=== PATIENT | female | born 1950 | race Caucasian/White ===

== ENCOUNTER 2017-05-12 05:28 | Observation (INO) ==
[2017-04-23 10:51] LABS: Basophils # 0.1 10*3/uL (0.0-0.2); Basophils % 0.9 % (0.0-0.8); Eosinophils # 0.2 10*3/uL (0.0-0.87); Eosinophils % 2.7 % (0.00-10.9); Hematocrit 40.2 VOL% (35.7-47.0); Hemoglobin 13.3 GM/DL (12.0-16.0); Immature Granulocytes % 0.4 %; Immature Granulocytes Absolute 0.03 #; Lymphocytes # 2.9 10*3/uL (1.4-4.0); Lymphocytes % 37.2 % (21.3-54.2); Mean Corpuscular HGB Conc 33.1 GM/DL (32-36); Mean Corpuscular Hemoglobin 30 PG (27-34); Mean Corpuscular Volume 90.7 FL (87-102); Mean Platelet Volume 11.5 FL (9.6-12.0); Monocytes # 0.4 10*3/uL (0.11-0.8); Monocytes % 5.5 % (1.7-12.7); Neutrophils # 4.1 10*3/uL (1.4-7.4); Neutrophils % 53.3 % (38.7-73.9); Platelet Count 255 T/CUMM (130-400); Red Blood Count 4.43 MC/CUMM (3.8-5.5); Red Cell Distribution Width 12.6 % (9.3-17.3); White Blood Count 7.7 T/CUMM (4-12)
[2017-04-23 10:59] LABS: Apearance,Urine Slightly Hazy (Clear); Bacteria,Urine Occasional /HPF (Few); Bilirubin,Urine Negative (Negative); Blood, Urine Negative (Negative); Glucose,Urine (UA) Negative (Negative); Ketones,Urine Negative (Negative); Mucus,Urine Occasional /LPF (Occasional); Nitrite,Urine Negative (Negative); Protein,Urine Negative; RBC,Urine <1 /HPF (0-4); Squamous Epithelial Cell,Urine Occasional /HPF (0-10); Urine Color Yellow (Yellow); Urine Specific Gravity 1.013 (1.001-1.035); Urine Urobilinogen < 2.0 EU/DL (0.2-1.0)
[2017-04-23 11:00] LABS: INR 0.9; Partial Thromboplastin Time 26.4 SECS (0-40)
[2017-04-23 11:24] LABS: Albumin 3.6 G/DL (3.4-5.0); Bilirubin,Total 0.5 MG/DL (0.2-1.0); Osmolality,Calculated 284.1 MOS/KG (273-304); Total Protein 7.1 G/DL (6.4-8.3)
[2017-05-12] MEDS ORDERED: ceFAZolin 1,000 MG VIAL ONE (05:53)
[2017-05-12] MEDS ORDERED: VANCOMYCIN 1,000 MG VIAL ONE (05:53)
[2017-05-12] MEDS ORDERED: ceFAZolin 1,000 MG in SYRINGE 1 EACH IV ONE (06:00)
[2017-05-12] MEDS ORDERED: VANCOMYCIN INJ 1,000 MG in SODIUM CHLORIDE 0.9% 250 ML IV ONE (06:00)
[2017-05-12] MEDS ORDERED: LACTATED RINGERS 1,000 ML IV SCH (07:30)
[2017-05-12] MEDS ORDERED: DIAZEPAM 5 MG TABLET PO STA (07:38)
[2017-05-12] MEDS ORDERED: PANTOPRAZOLE 40 MG TABLET PO STA (07:38)
[2017-05-12] MEDS ORDERED: PANTOPRAZOLE 40 MG TABLET PO ONE (07:40)
[2017-05-12] MEDS ORDERED: DIAZEPAM 5 MG TABLET ONE (07:40)
[2017-05-12] MEDS ORDERED: TRANEXAMIC ACID 1,000 MG/10 ML VIAL IV ONE (09:37)
[2017-05-12] MEDS ORDERED: NEOMYCIN/POLYMYXIN/BACITRACIN OINT 28.4 GM TUBE TOP ONE (09:38)
[2017-05-12] MEDS ORDERED: BUPIVACAINE SPINAL 0.75% 2 ML AMP SPINAL ONE (10:17)
[2017-05-12] MEDS ORDERED: DEXTROSE 50% 25 GM/50 ML VIAL IV PRN (10:50)
[2017-05-12] MEDS ORDERED: GLUCAGON 1 MG VIAL IM PRN (10:50)
[2017-05-12] MEDS ORDERED: diphenhydrAMINE CAP 25 MG CAPSULE PO PRN (10:51)
[2017-05-12] MEDS ORDERED: ONDANSETRON 4 MG/2 ML VIAL IV PRN (10:51)
[2017-05-12] MEDS ORDERED: oxyCODONE IR 5 MG TABLET PO PRN ×2 (10:51)
[2017-05-12] MEDS ORDERED: MORPHINE 2 MG/1 ML SYRINGE IV PRN ×2 (10:51)
[2017-05-12] MEDS ORDERED: MAGNESIUM HYDROXIDE SUSP 30 ML UDCUP PO PRN (10:51)
[2017-05-12] MEDS ORDERED: ROPIVACAINE 0.5% 30 ML VIAL ONE (12:12)
[2017-05-12] MEDS ORDERED: fentaNYL 100 MCG/2 ML VIAL ONE (12:28)
[2017-05-12] MEDS ORDERED: ONDANSETRON 4 MG/2 ML VIAL ONE (12:28)
[2017-05-12] MEDS ORDERED: PROPOFOL 200 MG/20 ML VIAL IV ONE (12:28)
[2017-05-12] MEDS ORDERED: MIDAZOLAM 2 MG/2 ML VIAL ONE (12:28)
[2017-05-12] MEDS ORDERED: PROPOFOL 500 MG/50 ML BOTTLE IV ONE (12:29)
[2017-05-12] MEDS ORDERED: SODIUM CHLORIDE 0.9% 100 ML IV ONE (12:29)
[2017-05-12] MEDS ORDERED: ACETAMINOPHEN 1,000 MG/100 ML VIAL IV ONE (12:29)
[2017-05-12] MEDS: LACTATED RINGERS 1,000 ML IV SCH ×2 (13:34→22:49)
[2017-05-12] MEDS: KETOROLAC 30 MG/1 ML VIAL IV SCH ×3 (13:35→22:50)
[2017-05-12] MEDS: INSULIN LISPRO 100 UNIT/ML SUBCUT SCH ×3 (13:35→21:36)
[2017-05-12] MEDS ORDERED: PNEUMOCOCCAL VACCINE (13 VALENT) 0.5 ML SYRINGE IM ONE (14:30)
[2017-05-12] MEDS: ACETAMINOPHEN 500 MG TABLET PO SCH ×2 (15:17→21:37)
[2017-05-12] MEDS: ceFAZolin 2,000 MG in PREMIX 1 EACH IV SCH ×2 (15:22→22:50)
[2017-05-12] MEDS ORDERED: LISINOPRIL 5 MG TABLET PO SCH (21:00)
[2017-05-12] MEDS: DOCUSATE SODIUM 100 MG CAPSULE PO SCH (21:37)
[2017-05-13] MEDS: ACETAMINOPHEN 500 MG TABLET PO SCH ×2 (03:13→08:37)
[2017-05-13] MEDS: KETOROLAC 30 MG/1 ML VIAL IV SCH (04:53)
[2017-05-13] MEDS ORDERED: FONDAPARINUX 2.5 MG/0.5 ML SYRINGE SUBCUT SCH (06:00)
[2017-05-13 06:23] LABS: Basophils # 0.1 10*3/uL (0.0-0.2); Basophils % 0.4 % (0.0-0.8); Eosinophils # 0.1 10*3/uL (0.0-0.87); Eosinophils % 0.6 % (0.00-10.9); Hematocrit 33.8 VOL% (35.7-47.0); Immature Granulocytes % 0.3 %; Immature Granulocytes Absolute 0.04 #; Lymphocytes # 2.4 10*3/uL (1.4-4.0); Lymphocytes % 19.5 % (21.3-54.2); Mean Corpuscular HGB Conc 32.5 GM/DL (32-36); Mean Corpuscular Hemoglobin 30 PG (27-34); Mean Corpuscular Volume 91.6 FL (87-102); Mean Platelet Volume 11.4 FL (9.6-12.0); Monocytes # 1.2 10*3/uL (0.11-0.8); Monocytes % 9.5 % (1.7-12.7); Neutrophils # 8.7 10*3/uL (1.4-7.4); Neutrophils % 69.7 % (38.7-73.9); Platelet Count 216 T/CUMM (130-400); Red Blood Count 3.69 MC/CUMM (3.8-5.5); Red Cell Distribution Width 12.5 % (9.3-17.3); White Blood Count 12.5 T/CUMM (4-12)
[2017-05-13 06:56] LABS: Calcium 8.2 MG/DL (8.5-10.1); Potassium 4.1 MMOL/L (3.5-5.1)
[2017-05-13] MEDS: INSULIN LISPRO 100 UNIT/ML SUBCUT SCH ×2 (07:20→11:45)
[2017-05-13] MEDS: DOCUSATE SODIUM 100 MG CAPSULE PO SCH (08:37)
[2017-05-13] MEDS ORDERED: OMEGA 3 ACID ETHYL ESTERS 1 GM CAPSULE PO SCH (09:00)
[2017-05-13] MEDS ORDERED: CYANOCOBALAMIN 500 MCG TABLET PO SCH (09:00)
[2017-05-13] MEDS ORDERED: ASCORBIC ACID 500 MG TABLET PO SCH (09:00)
[2017-05-13] MEDS ORDERED: LEVOTHYROXINE 125 MCG TABLET PO SCH (09:00)
[2017-05-13] MEDS ORDERED: CHOLECALCIFEROL 400 UNIT TABLET PO SCH (09:00)
[2017-05-13 11:03] VITALS: BP 113/65
[2017-05-13] MEDS ORDERED: metFORMIN 500 MG TABLET PO SCH (21:00)
== END 2017-05-13 15:02 | disposition home health service (06) ==
LOC: N.SDSINP 05:28 → N.OR 05:28 → N.SDSINP 05:29 → N.3E 13:12
PROVIDERS: ADMIT Orthopaedic Surgery; ATTEND Orthopaedic Surgery